=== PATIENT | female | born 1950 ===

== ENCOUNTER 2018-12-28 06:25 | Day surgery (SDC) | payer OTHER ==
[~2018-12-28 06:25] MED LIST: AMLODIPINE-OLM1 EAC3 PO; ATORVASTATIN CA20 MG PO; GABAPEN PO; LOTENSIN40 MG PO; RIVASTIGMINE T; SINGULAIR10 MG PO; [UNRECOGNIZED DRUG - OTHER] PO
[2018-12-28] MEDS ORDERED: PERCOCET 5-3251 EACH PO (10:43)
== END 2018-12-28 13:05 | disposition home or self-care (01) ==
LOC: CIR.AMB 06:25
DX: C73 Malignant neoplasm of thyroid gland (principal)